=== PATIENT | female | born 1950 | race American Indian/Alaskan Native ===

== ENCOUNTER 2021-12-26 14:25 | Emergency (ER) | payer MEDICARE, BC ==
--- NOTE | 2021-12-26 15:09 | XRay Report ---
Right great toe one view INDICATION: Fall IMPRESSION: Comminuted mildly displaced fracture of the proximal phalanx of the great toe. This appea rs to extend into the IP joint. Degenerative changes great toe MTP joint is well. Diffuse soft tissue swelling is seen. Signer Name: Sduhir Glass MD Signed: 12/26/2021 3:05 PM Workstation Name: [id number]
--- NOTE | 2021-12-26 15:12 | Emergency Department Report ---
ED Lower Extremity HPI - General Stated Complaint: FELL/RT BIG TOE BROKE Time Seen by Provider: 12/26/21 15:10 Source: patient Mode of arrival: Ambulatory Limitations: No Limitations - History of Present Illness Initial Comments: 71 yo comes to ER p bumping right great toe on Saturday night. Co right toe pain No fall Neurovasc intact/ambulatory/rapid cap refill Complaint: fall -: Sudden, days(s) Injury: Toes: Right Type of Injury: blunt Place: home Severity: moderate Severity scale (0 -10): 2 Improves With: immobilization Worsens With: movement Context: direct blow ED Review of Systems ROS: Stated complaint: FELL/RT BIG TOE BROKE Other details as noted in HPI Comment: All other systems reviewed and negative ED Past Medical Hx - Past Medical History Previous Medical History?: Yes Hx Hypertension: Yes Additional medical history: hld - Surgical History Past Surgical History?: Yes Additional Surgical History: hip replaced 2017; shoulder surg 2016 - Family History Family history: no significant - Social History Smoking Status: Never Smoker Substance Use Type: None ED Physical Exam - General Limitations: No Limitations General appearance: alert, in no apparent distress - Head Head exam: Present: atraumatic, normocephalic - Eye Eye exam: Present: normal appearance - ENT ENT exam: Present: mucous membranes moist - Neck Neck exam: Present: normal inspection - Respiratory Respiratory exam: Present: normal lung sounds bilaterally. Absent: respiratory distress - Cardiovascular Cardiovascular Exam: Present: regular rate, normal rhythm. Absent: systolic murmur, diastolic murmur, rubs, gallop - GI/Abdominal GI/Abdominal exam: Present: soft, normal bowel sounds - Extremities Exam Extremities exam: Present: normal inspection - Expanded Lower Extremity Exam Right Lower Leg exam: Present: normal inspection Ankle exam: Present: normal inspection Foot/Toe exam: Present: tenderness, swelling, ecchymosis Neuro vascular tendon exam: Present: no vascular compromise - Back Exam Back exam: Present: normal inspection - Neurological Exam Neurological exam: Present: alert, oriented X3 - Psychiatric Psychiatric exam: Present: normal affect, normal mood - Skin Skin exam: Present: warm, dry, intact, normal color. Absent: rash ED Lower Extremity MDM - Radiology Data Radiology results: report reviewed, image reviewed fx - Medical Decision Making fx noted ortho shoe/splint; crutches pt being dc home with dc plan of care including diet/meds/activity and follow up. She verbalizes understanding of plan of care. Vital Signs 12/26/21 15:15 Temperature 98.9 F Pulse Rate 59 L Respiratory 14 Rate Blood Pressure 120/60 [Right] O2 Sat by Pulse 99 Oximetry - Differential Diagnosis ro fx Critical care attestation.: If time is entered above; I have spent that time in minutes in the direct care of this critically ill patient, excluding procedure time. ED Disposition Clinical Impression: Toe fracture, right Qualifiers: Encounter type: initial encounter Toe: great toe Fracture type: closed Phalanx: distal Disposition: HOME / SELF CARE / HOMELESS Is pt being admited?: No Does the pt Need Aspirin: No Condition: Stable Instructions: Toe Fracture, [id number] Additional Instructions: rest ice elevate toe ortho splint and crutches to allow it time to heal motrin or tylenol over the counter for pain follow up with ortho next week referral below Referrals: ESPERANZA GRAHAM MD [Staff Physician] - 3-5 Days Time of Disposition: 15:19
[2021-12-26] MEDS ORDERED: IBUPROFEN 800 MG TAB PO ONE (15:30)
[2021-12-26 15:52] VITALS: BP 128/74
== END 2021-12-26 15:49 | disposition home or self-care (01) ==
LOC: ED 14:25
DX: S92.911A Unspecified fracture of right toe(s), initial encounter for closed fracture (principal); I10 Essential (primary) hypertension; X58.XXXA Exposure to other specified factors, initial encounter; Y93.89 Activity, other specified; Y92.89 Other specified places as the place of occurrence of the external cause; Y99.8 Other external cause status
CPT/HCPCS: 99283